=== PATIENT | male | born 1960 | race Caucasian/White ===

== ENCOUNTER 2019-07-04 11:59 | Day surgery (SDC) | payer OTHER, SELFPAY ==
--- NOTE | 2019-07-04 | PATH_ITS ---
[facility] Accession Number: [id number] . 01 Material submitted: . PART A: colon - ASCENDING COLON POLYP BIOPSY PART B: colon - SIGMOID COLON POLYP BIOPSY . 02 Diagnosis: A. Ascending Colon, Polyp, Biopsy: Tubular adenoma. . B. Sigmoid Colon, Polyp, Biopsy: Tubular adenoma. MRV/07/07/2019 . 02 Electronically signed: . Caitlin Spivey MD, Pathologist NPI- [id number] . 01 Gross description: . Part A: ASCENDING COLON POLYP BIOPSY: Received in formalin are 3 fragment(s) of bridges, soft tissue measuring 0.2 x 0.2 x 0.1 cm to 0.3 x 0.3 x 0.3 cm which is entirely submitted and submitted entirely in 1 cassette(s) Part B: SIGMOID COLON POLYP BIOPSY: Received in formalin are 2 fragment(s) of bridges, soft tissue measuring 0.2 x 0.2 x 0.2 cm to 0.3 x 0.3 x 0.3 cm which is entirely submitted and submitted entirely in 1 cassette(s) /D[facility] /[facility] . 02 Pathologist provided ICD-10: D12.2, D12.5 . 02 CPT . 302678, 536342 Performed at: 01 [facility] [address], [place], [place] [id number] MD Víctor Maldonado MD Phone: [phone] Performed at: 02 [facility] [address] [place], [place] [id number] MD Caitlin Spivey MD Phone: [phone]
[2019-07-04 12:37] VITALS: BMI 28.7
[2019-07-04 12:40] VITALS: BP 122/77; PULSE 69; RESP 16; TEMP 36.2; O2SAT 95
[2019-07-04] MEDS: SODIUM CHLORIDE 0.9% 1,000 ML 200 ML IV ×2 (12:41→14:13)
[2019-07-04] MEDS: HYOSCYAMINE 0.125 MG TABLET PO (12:41)
--- NOTE | 2019-07-04 12:50 | PM.OP.ENDO ---
Operative Date/Time/Diagnoses Date of procedure: 07/04/19 Time of procedure: 12:50 Pre-op diagnosis: 1. Screening for colon cancer Post-op diagnosis: other (1. Ascending polyp x2, 2-6 mm, sigmoid polyp x1, 2 mm) Procedure & Clinicians Study performed: Colonoscopy Same procedure as scheduled: Yes Indications: 1. Screening for colon cancer Surgeon: Kristi Cordova Procedure Notes SCOAP/Timeout: 13:11 Procedure in detail: ENDOSCOPIST: Kristi Cordova MD Anesthesia RN: Gilles Kam RN Anesthesia start time: 13:12 Anesthesia end time: 13:53 PROCEDURE: Colonoscopy with cold biopsy INDICATIONS: 1. Screening for colon cancer MEDICATION: Levsin 0.125 mg sublingual, incremental doses of Versed and fentanyl until appropriate level sedation achieved. ASA CLASS: 2 CECAL WITHDRAWAL TIME: 15 minutes COMPLICATIONS: None. EXTENT OF PROCEDURE: Cecum. QUALITY OF PREP: Good with portions of liquid stool. PROCEDURE: Prior to insertion of the colonoscope, a digital rectal examination was accomplished with circumferential palpation of the distal rectal mucosa without significant findings being noted. The high-definition colonoscope was passed into the rectum in the usual fashion and advanced over to the cecum without difficulty. The ileocecal valve, appendiceal stoma, and medial wall all could be inspected and no abnormalities were seen. ASCENDING COLON: As the colonoscope was withdrawn, care was taken to expose and inspect the haustral folds and 2 polyps were seen; a 4-6 mm polyp removed with cold biopsy forceps and a 2 mm polyp removed with cold biopsy forceps, excellent hemostasis was noted. HEPATIC FLEXURE: Normal no polyps, diverticula or other abnormalities. TRANSVERSE COLON: Normal no polyps, diverticula or other abnormalities. DESCENDING COLON: Normal no polyps, diverticula or other abnormalities. SIGMOID COLON: A 2 mm polyp was noted and removed with cold biopsy forceps, excellent hemostasis. Otherwise, normal no diverticula or other abnormalities. RECTUM: Normal. J maneuver was produced. There was no significant perianal disease. The J maneuver was broken. The remainder of the rectum was inspected and there was no external hemorrhoid disease. The scope was withdrawn. IMPRESSION: 1. Ascending polyp x2, 2 mm in 4-6 mm, removed with cold biopsy forceps 2. Sigmoid polyp x1, 2 mm, removed with biopsy forceps PLAN: 1. Follow-up in clinic status post pathology results. The possibility of a missed lesion including a malignancy has been discussed with the patient previously. Potential alarm symptoms have been discussed and should be reported immediately. Scope withdrawal time: 15 minutes Sedation minutes: 41 Findings: polyp Specimen(s): other Complications: none Impression: As above Post-procedure Recommendations: Will call with biopsy results Follow up: weeks (2) Disposition: PACU
[2019-07-04] MEDS: fentaNYL 250 MCG/5 ML INJ IV (13:17)
[2019-07-04] MEDS: MIDAZOLAM 5 MG/5 ML VIAL IV (13:18)
[2019-07-04 14:21] VITALS: BP 113/75; PULSE 62; RESP 10; TEMP 36.4; O2SAT 98
[2019-07-04 14:27] VITALS: BP 113/77; PULSE 65; RESP 11; O2SAT 98
--- NOTE | 2019-07-04 14:29 | SUR.PHASEI ---
Report to Dotty
[2019-07-04 14:45] VITALS: BP 115/82; PULSE 64; RESP 16; TEMP 36.7; O2SAT 98
== END 2019-07-04 14:54 | disposition home or self-care (01) ==
PROVIDERS: PCP Family Medicine; Visit Provider Student in an Organized Health Care Education/Training Program
PROC: 0DJD8ZZ Inspection of Lower Intestinal Tract, Via Natural or Artificial Opening Endoscopic (ICD-10-PCS; CPT 45378; principal; 2019-07-04 13:00)
DX: Z12.11 Encounter for screening for malignant neoplasm of colon (principal); Z80.0 Family history of malignant neoplasm of digestive organs; D12.2 Benign neoplasm of ascending colon; D12.5 Benign neoplasm of sigmoid colon
CPT/HCPCS: 45380; J2250; J3010

== ENCOUNTER → 2021-01-13 12:19 | Outpatient (CLI) | payer OTHER, SELFPAY ==
[2021-01-13] MEDS: COVID-19 VACC #1, MRNA(MOD) 100 MCG/0.5 ML VIAL IM (12:26)
== END ==
PROVIDERS: PCP Family Medicine; Visit Provider Internal Medicine
DX: Z23 Encounter for immunization (principal)
CPT/HCPCS: 0011A; 91301

== ENCOUNTER → 2021-02-10 12:16 | Outpatient (CLI) | payer OTHER, SELFPAY ==
[2021-02-10] MEDS: COVID-19 VACC #2, MRNA(MOD) 100 MCG/0.5 ML VIAL IM (12:23)
== END ==
PROVIDERS: PCP Family Medicine; Visit Provider Internal Medicine
DX: Z23 Encounter for immunization (principal)
CPT/HCPCS: 0012A; 91301

== ENCOUNTER → 2022-11-22 09:04 | Outpatient (CLI) | payer OTHER, SELFPAY ==
[2022-11-22 11:11] LABS: COVID19 -Nasal RAPID Negative (Negative)
== END ==
PROVIDERS: PCP Family Medicine; Visit Provider Surgery
DX: Z01.812 Encounter for preprocedural laboratory examination (principal); Z20.822 Contact with and (suspected) exposure to COVID-19
CPT/HCPCS: 87635; C9803

== ENCOUNTER 2022-11-23 07:17 | Day surgery (SDC) | payer OTHER, SELFPAY ==
[2022-11-23] VITALS (7 sets, daily range): BP systolic 100–132; BP diastolic 59–85; PULSE 57–66; RESP 12–16; TEMP 36.2–36.4; O2SAT 96–100; BMI 27.9
--- NOTE | 2022-11-23 | PATH_ITS ---
[facility] Accession Number: [id number] No. of containers..02 Tissue . 01 Material submitted: . PART A: colon - TRANSVERSE COLON POLYP PART B: colon - DESCENDING POLYPS . 01 Diagnosis: A. Transverse Colon, Polyp, Biopsy: Tubular adenoma. . B. Descending Colon, Polyps, Biopsies: Tubular adenomas. MRV 11/29/2022 1151 Local . 01 Electronically signed: . Caitlin Spivey MD, Pathologist NPI- [id number] . 01 Gross description: . Part A: TRANSVERSE COLON POLYP: Received in formalin is 1 fragment(s) of bridges, soft tissue measuring 0.3 x 0.2 x 0.2 cm submitted entirely in 1 cassette(s) Part B: DESCENDING POLYPS: Received in formalin are multiple fragment(s) of bridges, soft tissue measuring 1.5 x 0.8 x 0.1 cm in aggregate submitted entirely in 1 cassette(s) /CPE 11/24/2022 0845 Local . 01 Pathologist provided ICD-10: D12.3, D12.4 . 01 CPT . 388791, 681915 Specimen Comment: A courtesy copy of this report has been sent to [phone] Performed at: 01 [facility] [address] [place] [address] Suite [facility], [place], [place] [id number] MD Víctor Maldonado MD Phone: [phone]
[2022-11-23] MEDS: LACTATED RINGERS 1,000 ML 42 ML IV (07:52)
--- NOTE | 2022-11-23 08:27 | PM.HP.1 ---
History of Present Illness History of Present Illness Date Patient Seen: 11/23/22 Time Patient Seen: 08:27 Chief complaint: SCREENING COLONOSCOPY Narrative: Ej is a 62-year-old man who is here for his colonoscopy. His last 1 was about 5 years ago he thinks 1 polyp was removed. His mother had colon cancer in her 70s. Patient History Medical History (Updated 11/23/22 @ 08:28 by Haider Jaimes MD) Allergic rhinitis Anxiety Hyperlipidemia Hypothyroidism Surgical History H/O repair of rotator cuff History of appendectomy History of splenectomy Family & Social History Social History: household members spouse Tobacco & Substance use: Smoking Status Never smoker Substance Use Type does not use Meds Home Medications and Allergies Home Medications Medication Instructions Recorded Confirmed Type levothyroxine 175 mcg tablet 175 mcg PO DAILY #0 tabs 07/25/13 11/23/22 History (Synthroid) clonazepam 0.5 mg tablet 0.5 mg PO TID PRN Anxiety 07/04/19 07/04/19 History fluticasone propionate 50 2 spray intranasal DAILY 07/04/19 07/04/19 History mcg/actuation nasal spray,suspension (Flonase Allergy Relief) sertraline 50 mg tablet 50 mg PO DAILY 07/04/19 11/23/22 History sodium sul 1.479 gram-potas ch See Rx Instructions PO PER PKG DIR 09/26/22 11/23/22 Rx 0.188 gram-magnes sul 0.225 gram #24 tabs tablet (Sutab) Allergies Allergy/AdvReac Type Severity Reaction Status Date / Time No Known Drug Allergies Allergy Verified 11/23/22 07:16 Exam Vital Signs (past 8 hours): - 11/23/22 07:34 Temperature 97.4 F L Pulse Rate 60 Respiratory Rate 16 Blood Pressure 132/85 Pulse Oximetry 98 Oxygen Delivery Method Room Air Oxygen Delivery Method Room Air Const General: healthy appearing Assessment & Plan Assessment and plan (1) History of adenomatous polyp of colon: Status: Acute Plan Risks and benefits of colonoscopy reviewed and he would like to proceed. Time Spent With Patient Critical Care time: I spent a total of [] minutes of critical care time on this patient's care today; this time is exclusive of procedural time.
--- NOTE | 2022-11-23 09:08 | PM.OP.COLON ---
Operative Date/Time/Diagnoses Date of procedure: 11/23/22 Time of procedure: 09:08 Pre-op diagnosis: History of polyps Post-op diagnosis: same Procedure & Clinicians Study performed: Colonoscopy Same procedure as scheduled: Yes Surgeon: Haider Jaimes Procedure Notes Procedure in detail: Surgeon: Haider Jaimes MD Anesthesia: Dr. Pink Procedure: The patient was brought to the endoscopy suite, placed in left lateral decubitus position. The patient was connected to monitoring devices. A time-out was performed. Sedation was administered. Once the patient was adequately sedated, a digital rectal exam was performed and was normal. The scope was then inserted and advanced to the cecum where the appendiceal orifice was identified and photographed. The scope was then slowly withdrawn over greater than 6 minutes. The mucosa was thoroughly inspected. There was a 5 mm polyp in the transverse colon removed with a cold snare. There was a 1 cm flat polyp in the descending colon which was lifted with saline and then removed with 3 passes of the cold snare. There was another 5 mm polyp in the descending colon removed with a cold snare. The scope was retroflexed in the rectum. There were some internal hemorrhoids noted. The scope was straightened and removed. The patient was awakened and brought to recovery. Scope withdrawal time: 19 minutes Sedation time: 26 minutes EBL: 5 mL Findings: 5 mm polyp in the distal transverse colon, 1 cm polyp in the descending colon and 5 mm polyp in the descending colon Post-procedure Recommendations: Will call with biopsy results Disposition: PACU
== END 2022-11-23 09:45 | disposition home or self-care (01) ==
PROVIDERS: PCP Family Medicine; Referring Provider Surgery; Visit Provider Surgery
PROC: 0DJD8ZZ Inspection of Lower Intestinal Tract, Via Natural or Artificial Opening Endoscopic (ICD-10-PCS; CPT 45378; principal; 2022-11-23 08:15)
DX: Z12.11 Encounter for screening for malignant neoplasm of colon (principal); Z86.010 Personal history of colon polyps; K64.8 Other hemorrhoids; D12.3 Benign neoplasm of transverse colon; D12.4 Benign neoplasm of descending colon
CPT/HCPCS: 45385; 45381; J2250; J2704; J3010